=== PATIENT | female | born 1960 | race Caucasian/White ===

== ENCOUNTER 2017-01-22 17:59 | Emergency (ER) | payer MEDICAID ==
[~2017-01-22] VITALS: Ht 162.6 cm; Wt 115.3 kg
[~2017-01-22 17:59] MED LIST: ASPI81TA50 PO; LISI5TAB7 PO; METF500T4 PO; OMEP-110 PO; SIMV20TA3 PO
[2017-01-22 18:05] VITALS: BP 187/117
[2017-01-22] MEDS ORDERED: IBUPROFEN 200 MG TABLET PO ONE (18:30)
[2017-01-22] MEDS ORDERED: OXYcodone/APAP 5/325MG TABLET PO ONE (18:30)
[2017-01-22] MEDS ORDERED: DIAZEPAM 5 MG TABLET PO ONE (18:30)
[2017-01-22] MEDS ORDERED: DIAZEPAM 5 MG TABLET ONE (18:39)
[2017-01-22] MEDS ORDERED: OXYcodone/APAP 5/325MG TABLET ONE (18:40)
[2017-01-22] MEDS ORDERED: IBUPROFEN 200 MG TABLET ONE (18:40)
[2017-01-22] MEDS ORDERED: OMEG1CAP12 PO (19:07)
[2017-01-22] MEDS ORDERED: MULT-123 PO (19:07)
== END 2017-01-22 20:07 | disposition home or self-care (01) ==
LOC: ED 19:45
DX: S29.012A Strain of muscle and tendon of back wall of thorax, initial encounter (principal); E78.00 Pure hypercholesterolemia, unspecified; I10 Essential (primary) hypertension; Z85.3 Personal history of malignant neoplasm of breast; E11.9 Type 2 diabetes mellitus without complications; X58.XXXA Exposure to other specified factors, initial encounter; Y93.89 Activity, other specified; Y92.89 Other specified places as the place of occurrence of the external cause; Y99.8 Other external cause status
CPT/HCPCS: 72072; 99284

== ENCOUNTER 2019-08-28 09:03 | Emergency (ER) | payer MEDICAID ==
[~2019-08-28] VITALS: Ht 162.6 cm; Wt 110.4 kg
[~2019-08-28 09:03] MED LIST changes: +METF500T17 PO; -METF500T4 PO; +MULT-123 PO; +OMEG1CAP23 PO
[2019-08-28 09:08] VITALS: BP 180/88
[2019-08-28] MEDS ORDERED: LISI1TAB19 PO (09:31)
[2019-08-28] MEDS ORDERED: LIDOCAINE 1%-EPI 1:100K, 20ML ONE (09:38)
--- NOTE | 2019-08-28 09:39 | NUR ---
LIDOCAINE WITH EPI REMOVED FROM [facility] AND GIVEN TO JAVIER CHO.
[2019-08-28] MEDS ORDERED: DIPH,PERTUSS(ACELL),TET VAC/PF 0.5 ML IM-VACC ONE ×2 (10:00→10:05)
[2019-08-28] MEDS ORDERED: LIDOCAINE 1%-EPI 1:100K, 20ML SQ ONE (10:00)
--- NOTE | 2019-08-28 11:08 | NUR ---
Patient/Caregiver given discharge instructions and they have confirmed that they understand the instructions. Patient ambulatory with steady gait.
== END 2019-08-28 11:08 | disposition home or self-care (01) ==
LOC: ED 09:19
DX: S61.411A Laceration without foreign body of right hand, initial encounter (principal); Z88.9 Allergy status to unspecified drugs, medicaments and biological substances; X58.XXXA Exposure to other specified factors, initial encounter; Y93.89 Activity, other specified; Y92.098 Other place in other non-institutional residence as the place of occurrence of the external cause; Y99.8 Other external cause status
CPT/HCPCS: 12042; 73130; 90471; 90715; 99284; J3490

== ENCOUNTER 2019-09-07 08:40 | Emergency (ER) | payer MEDICAID ==
[~2019-09-07] VITALS: Ht 162.6 cm; Wt 110.9 kg
[~2019-09-07 08:40] MED LIST changes: +LISI1TAB19 PO
[2019-09-07 09:12] VITALS: BP 149/93
--- NOTE | 2019-09-07 09:33 | NUR ---
SUTURES REMOVED, DRESSING APPLIED BY [facility]PA.
--- NOTE | 2019-09-07 09:37 | NUR ---
PT GIVEN DC INSTRUCTIONS, PT AMB TO DC DESK WITH STEADY GAIT, NADN AT DC.
== END 2019-09-07 09:38 | disposition home or self-care (01) ==
LOC: ED 09:20
DX: S61.411D Laceration without foreign body of right hand, subsequent encounter (principal); E11.9 Type 2 diabetes mellitus without complications; I10 Essential (primary) hypertension; Z88.5 Allergy status to narcotic agent; Z90.12 Acquired absence of left breast and nipple; X58.XXXD Exposure to other specified factors, subsequent encounter
CPT/HCPCS: 99282

== ENCOUNTER 2019-11-09 16:37 | Emergency (ER) | payer MEDICAID ==
[~2019-11-09] VITALS: Ht 162.6 cm; Wt 110.0 kg
[~2019-11-09 16:37] MED LIST changes: +SIMV20TA19 PO; -SIMV20TA3 PO
--- NOTE | 2019-11-09 16:47 | NUR ---
[place]. REPORT RECEIVED FROM EMS. PT C/O SUDDEN ONSET OF RIGHT SIDED FLANK/ABD PAIN WITH N/V. HX OF KIDNEY STONE(LEFT SIDED) AND PT STATES "FEEL THE SAME KIDNEY STONE." PT'S AOX4. RESPS EVEN AND UNLABORED. BP/SPO2 MONITORS IN PLACE. CALL LIGHT WITHIN REACH. 4 ZOFRAN/100 FENTANYL GIVEN PHARMACEUTICAL OFFICER BY EMS. EDMD AT BEDSIDE TO EVALUATE AT THIS TIME.
[2019-11-09] MEDS ORDERED: KETOROLAC 30 MG/1 ML ONE (16:50)
[2019-11-09] MEDS ORDERED: HYDROmorphone 1 MG/ML, 1ML INJ ONE ×2 (16:50→19:12)
[2019-11-09] MEDS: HYDROmorphone 2 MG/ML, 1ML IVPush PRN ×2 (16:52→19:15)
--- NOTE | 2019-11-09 16:55 | NUR ---
PT MEDICATED PER EMAR. PT TOLERATED WELL. PT'S AOX4. RESPS EVEN AND UNLABORED.
--- NOTE | 2019-11-09 16:55 | NUR ---
PT TO CT AT THIS TIME.
--- NOTE | 2019-11-09 16:56 | NUR ---
PT STATES "I CAN'T PEE NOW. I JUST PEED BEFORE I GOT HERE. NO CATH PLEASE." EDMD NOTIFIED. PT AWARE OF URINE SAMPLE.
[2019-11-09] MEDS ORDERED: SODIUM CHLORIDE FLUSH 10ML SYR IVF ONE (17:00)
[2019-11-09] MEDS ORDERED: KETOROLAC 30 MG/1 ML IVPush ONE (17:00)
[2019-11-09 17:10] LABS: BASOPHILS # (AUTO) 0.04 x10^3/uL (0-0.1); BASOPHILS % (AUTO) 0 % (0-1); EOSINOPHILS # (AUTO) 0.06 x10^3/uL (0-0.4); EOSINOPHILS % (AUTO) 1 % (1-7); LYMPHOCYTES # (AUTO) 2.65 x10^3/uL (1-3.4); LYMPHOCYTES % (AUTO) 25 % (22-44); MD NO; MEAN CORPUSCULAR HEMOGLOBIN 30.6 pg (27.0-34.8); MEAN CORPUSCULAR HGB CONC 33.4 g/dL (32.4-35.8); MEAN CORPUSCULAR VOLUME 91.5 fL (80-100); MEAN PLATELET VOLUME 9.9 fL (7.4-10.4); MONOCYTES # (AUTO) 0.64 x10^3/uL (0.2-0.8); MONOCYTES % (AUTO) 6 % (2-9); NEUTROPHILS # (AUTO) 7.17 x10^3/uL (1.8-6.8); NEUTROPHILS % (AUTO) 68 % (42-75); PLATELET COUNT 274 x10^3/uL (130-400); RED BLOOD COUNT 5.25 x10^6/uL (3.82-5.3); RED CELL DISTRIBUTION WIDTH 13.4 % (9.6-15.2)
--- NOTE | 2019-11-09 17:10 | NUR ---
PT BACK TO ROOM FROM CT AT THIS TIME.
[2019-11-09 17:13] LABS: ALANINE AMINOTRANSFERASE 40 U/L (12-78); ALBUMIN 3.8 g/dL (3.4-5.0); ANION GAP 9 mmol/L (5-15); CALCIUM 9.1 mg/dL (8.5-10.1); CHLORIDE 107 mmol/L (98-107); CREATININE 0.97 mg/dL (0.55-1.02)
--- NOTE | 2019-11-09 17:13 | NUR ---
MOUTH SWAB GIVEN AT THIS TIME PER REQUEST.
[2019-11-09 17:15] LABS: ALKALINE PHOSPHATASE 117 U/L (45-117); BILIRUBIN,TOTAL 1.3 mg/dL (0.2-1.0); TOTAL PROTEIN 7.4 g/dL (6.4-8.2)
--- NOTE | 2019-11-09 17:22 | NUR ---
PT'S PAIN LEVEL IS 3/10 AT THIS TIME.
--- NOTE | 2019-11-09 17:49 | NUR ---
pt amb to br with steady gait. urine cup given.
--- NOTE | 2019-11-09 18:07 | NUR ---
PT PROVIDED A LITTLE AMOUNT OF URINE SAMPLE AT THIS TIME. THIS RN WALKED TO LAB.
[2019-11-09 18:08] LABS: MICROSCOPIC INDICATED
[2019-11-09 18:11] VITALS: BP 111/64
[2019-11-09 18:13] LABS: CULTURE INDICATED? YES
[2019-11-09] MEDS ORDERED: ONDANSETRON 2MG/ML, 2ML ONE (19:12)
[2019-11-09] MEDS ORDERED: ONDANSETRON 2MG/ML, 2ML IVPush ONE (19:30)
== END 2019-11-09 19:28 | disposition home or self-care (01) ==
LOC: ED 18:15
DX: N20.1 Calculus of ureter (principal); N23 Unspecified renal colic; I10 Essential (primary) hypertension; E11.9 Type 2 diabetes mellitus without complications; Z90.10 Acquired absence of unspecified breast and nipple
CPT/HCPCS: 36415; 74176; 80053; 81001; 83690; 85025; 87086; 96374; 96375; 96376; 99284; J1170; J1885; J2405

== ENCOUNTER 2020-09-27 16:48 | Emergency (ER) | payer MEDICAID ==
[~2020-09-27] VITALS: Ht 162.6 cm; Wt 105.0 kg
[~2020-09-27 16:48] MED LIST changes: -LISI1TAB19 PO; +LISI1TAB39 PO
--- NOTE | 2020-09-27 17:00 | NUR ---
Pt arrives via [facility], reporting severe, sudden onset right lower flank pain radiation to RLQ abdomen. Pt reports hx of gallstones and reports "this feels just like that". Hx diabetes, HTN, breast cancer. IV inserted by [facility] in right AC.
[2020-09-27] MEDS ORDERED: ONDANSETRON 2MG/ML, 2ML IVPush ONE (17:30)
[2020-09-27] MEDS ORDERED: MORPHINE SULFATE 4 MG/ML, 1ML IVPush PRN (17:30)
[2020-09-27] MEDS ORDERED: MORPHINE SULFATE 4 MG/ML, 1ML ONE (17:53)
[2020-09-27] MEDS ORDERED: ONDANSETRON 2MG/ML, 2ML ONE (17:53)
--- NOTE | 2020-09-27 18:03 | NUR ---
Sent small UA sample to lab- may not be enough.
--- NOTE | 2020-09-27 18:10 | NUR ---
Lab at bedside.
[2020-09-27 18:16] LABS: BASOPHILS % (AUTO) 1 % (0-1); EOSINOPHILS % (AUTO) 0 % (1-7); LYMPHOCYTES % (AUTO) 18 % (22-44); MEAN CORPUSCULAR HEMOGLOBIN 31.2 pg (27.0-34.8); MEAN CORPUSCULAR HGB CONC 34.7 g/dL (32.4-35.8); MEAN PLATELET VOLUME 9.5 fL (7.4-10.4); MONOCYTES % (AUTO) 7 % (2-9); NEUTROPHILS % (AUTO) 75 % (42-75); PLATELET COUNT 275 x10^3/uL (130-400); RED BLOOD COUNT 4.93 x10^6/uL (3.82-5.3); RED CELL DISTRIBUTION WIDTH 13.6 % (9.6-15.2)
[2020-09-27 18:21] LABS: MD NO
--- NOTE | 2020-09-27 18:27 | NUR ---
Pt reports pain is now 10/19
[2020-09-27 18:28] LABS: ALBUMIN 3.9 g/dL (3.4-5.0); ANION GAP 10 mmol/L (5-15); CALCIUM 9.1 mg/dL (8.5-10.1); CHLORIDE 106 mmol/L (98-107)
[2020-09-27 18:30] LABS: ALANINE AMINOTRANSFERASE 41 U/L (12-78); ALKALINE PHOSPHATASE 124 U/L (45-117); CREATININE 0.87 mg/dL (0.55-1.02); TOTAL PROTEIN 7.6 g/dL (6.4-8.2)
--- NOTE | 2020-09-27 18:33 | NUR ---
Family at bedside
--- NOTE | 2020-09-27 18:41 | NUR ---
Pt ambulating to bathroom- steady, equal gait. Pt reports she is urinating more frequently than normal.
[2020-09-27 18:42] LABS: MICROSCOPIC INDICATED
--- NOTE | 2020-09-27 19:06 | NUR ---
Dr. Cast at bedside.
[2020-09-27 19:24] VITALS: BP 157/88
--- NOTE | 2020-09-27 19:25 | NUR ---
IV removed, catheter intact, hemostasis achieved, dressing applied.
== END 2020-09-27 19:43 | disposition home or self-care (01) ==
LOC: ED 18:52
DX: N20.1 Calculus of ureter (principal); R10.32 Left lower quadrant pain; R10.9 Unspecified abdominal pain; E11.9 Type 2 diabetes mellitus without complications; I10 Essential (primary) hypertension; E78.5 Hyperlipidemia, unspecified; E78.00 Pure hypercholesterolemia, unspecified; Z85.3 Personal history of malignant neoplasm of breast; Z90.10 Acquired absence of unspecified breast and nipple
CPT/HCPCS: 36415; 74176; 80053; 81001; 83690; 85025; 87086; 96374; 96375; 99284; J2270; J2405